=== PATIENT | male | born 1950 | race Caucasian/White ===

== ENCOUNTER 2022-01-12 08:51 | Inpatient (IN) | payer MEDICARE, OTHER ==
[~2022-01-12] VITALS: Ht 195.6 cm; Wt 115.3 kg
[2022-01-12] MEDS ORDERED: MAGNESIUM SULFATE IN WATER 2 GM in IV 1 EA IV STA ×2 (09:26)
[2022-01-12 09:59] LABS: VENOUS BASE EXCESS 2.4 (-2.0-2.0); VENOUS HCO3 28.3 MEQ/L (23.0-27.0); VENOUS O2 SATURATION 85.3 % (60.0-80.0); VENOUS PARTIAL PRESSURE CO2 49.1 mmHg (38.0-50.0); VENOUS PARTIAL PRESSURE O2 51.5 mmHg (30.0-50.0); VENOUS PH 7.379 UNITS (7.330-7.430); VENOUS STANDARD HCO3 26.4 MEQ/L; VENOUS TOTAL CO2 29.8 MEQ/L (24.0-28.0)
[2022-01-12 10:07] LABS: BASO % 0.2 % (0.0-1.0); EOS # 0.1 10^3/uL (0.0-0.5); EOS % 1.2 % (0.0-3.0); HEMATOCRIT 36.1 % (42.0-52.0); HEMOGLOBIN 11.7 g/dl (13.5-17.5); LYMPH # 0.6 10^3/uL (1.5-5.0); LYMPH % 13.5 % (24.0-44.0); MEAN CORPUSCULAR HEMOGLOBIN 29.8 pg (27.0-33.0); MEAN CORPUSCULAR HGB CONC 32.4 g/dl (32.0-36.5); MEAN CORPUSCULAR VOLUME 92.1 fl (80.0-96.0); MONO # 0.5 10^3/uL (0.0-0.8); MONO % 10.8 % (2.0-8.0); NEUTROPHILS # 3.1 10^3/uL (1.5-8.5); NEUTROPHILS % 74.1 % (36.0-66.0); PLATELET COUNT, AUTOMATED 163 10^3/uL (150-450); RED BLOOD COUNT 3.92 10^6/uL (4.30-6.10); WHITE BLOOD COUNT 4.2 10^3/uL (4.0-10.0)
[2022-01-12 10:48] LABS: BLOOD UREA NITROGEN 23 MG/DL (7-18); CALCIUM LEVEL 8.5 MG/DL (8.8-10.2); CARBON DIOXIDE LEVEL 28 MEQ/L (21-32); CHLORIDE LEVEL 104 MEQ/L (98-107); CREATININE FOR GFR 1.15 MG/DL (0.70-1.30); GLOMERULAR FILTRATION RATE > 60.0 (>42); GLUCOSE, FASTING 249 MG/DL (70-100); MAGNESIUM LEVEL 2.2 MG/DL (1.8-2.4); NT-PRO BNP 2191 PG/ML (<125); SODIUM LEVEL 139 MEQ/L (136-145)
[2022-01-12] MEDS ORDERED: VITA500T15 PO (10:48)
[2022-01-12] MEDS ORDERED: GLIP10TA6 PO (10:48)
[2022-01-12] MEDS ORDERED: ATOR1TAB21 PO (10:48)
[2022-01-12] MEDS ORDERED: VITA100093 PO (10:48)
[2022-01-12] MEDS ORDERED: TAMS1CAP17 PO (10:48)
[2022-01-12] MEDS ORDERED: PIOG1TAB37 PO (10:48)
[2022-01-12] MEDS ORDERED: FERR325T3 PO (10:48)
[2022-01-12 10:49] LABS: CPK CREATINE PHOSPHOKINASE 73 U/L (39-308)
[2022-01-12] MEDS ORDERED: HOME MED LIST COMPLETE! XX SCH (10:50)
[2022-01-12 10:52] LABS: RSV AMPLIFICATION NEGATIVE (NEGATIVE)
[2022-01-12] MEDS ORDERED: ISOVUE-370 76% 100ML VIAL As Ordered ONE (11:21)
[2022-01-12] MEDS ORDERED: ASPIRIN 81 MG CHEW TABLET PO ONE (11:25)
[2022-01-12] MEDS ORDERED: diltiaZEM 125 MG in NS 100 ML IV SCH ×2 (11:25→17:30)
[2022-01-12] MEDS ORDERED: HEPARIN SOD (PORCINE) 5000UNITS/ML 1ML VIAL/SYRINGE IV PRN (13:35)
[2022-01-12] MEDS: METOPROLOL TART 25 MG TABLET PO PRN (13:37)
[2022-01-12] MEDS ORDERED: DEXTROSE 50% 50 ML SYRINGE IV PRN (13:55)
[2022-01-12] MEDS ORDERED: GLUCAGON INJ 1MG VIAL SC PRN (13:55)
[2022-01-12] MEDS ORDERED: GLUCOSE 4GM CHEW TABLET PO PRN (13:55)
[2022-01-12] MEDS ORDERED: METOPROLOL TART 25 MG TABLET PO ONE (14:15)
[2022-01-12 14:18] LABS: HEMOGLOBIN 11.8 g/dl (13.5-17.5); MEAN CORPUSCULAR HEMOGLOBIN 29.6 pg (27.0-33.0); MEAN CORPUSCULAR HGB CONC 31.9 g/dl (32.0-36.5); MEAN CORPUSCULAR VOLUME 92.7 fl (80.0-96.0); PLATELET COUNT, AUTOMATED 160 10^3/uL (150-450); RED BLOOD COUNT 3.99 10^6/uL (4.30-6.10); WHITE BLOOD COUNT 4.3 10^3/uL (4.0-10.0)
[2022-01-12] MEDS ORDERED: METOPROLOL 5 MG/5 ML VIAL IV STA (14:19)
[2022-01-12] MEDS: HEPARIN DRIP 25,000 UNITS in IV 1 EA IV SCH (14:40)
[2022-01-12 15:21] VITALS: BP 132/91
[2022-01-12 16:00] VITALS: BP 122/82
[2022-01-12 17:00] VITALS: BP 122/66
[2022-01-12] MEDS: INSULIN LISPRO (NovoLOG) PER UNIT SC SCH (18:27)
[2022-01-12 18:32] VITALS: BP 124/68
[2022-01-12 20:00] VITALS: BP 123/67
[2022-01-12] MEDS: LEVEMIR (INSULIN DETEMIR) 1 UNITS/0.01ML SC SCH (21:00)
[2022-01-12] MEDS: ATORVASTATIN 20 MG TAB PO SCH (22:24)
[2022-01-12] MEDS: TAMSULOSIN 0.4 MG CAP PO SCH (22:24)
[2022-01-12] MEDS: VITAMIN D 1,000 INTERNATIONAL UNITS TABLET PO SCH (22:24)
[2022-01-13] VITALS: BP 129/67
[2022-01-13] MEDS ORDERED: diltiaZEM 125 MG in NS 100 ML IV SCH (01:50)
[2022-01-13 02:36] LABS: HEMOGLOBIN 11.3 g/dl (13.5-17.5); MEAN CORPUSCULAR HEMOGLOBIN 29.4 pg (27.0-33.0); MEAN CORPUSCULAR HGB CONC 32.3 g/dl (32.0-36.5); MEAN CORPUSCULAR VOLUME 91.1 fl (80.0-96.0); PLATELET COUNT, AUTOMATED 148 10^3/uL (150-450); RED BLOOD COUNT 3.84 10^6/uL (4.30-6.10); WHITE BLOOD COUNT 4.5 10^3/uL (4.0-10.0)
[2022-01-13 03:32] LABS: BLOOD UREA NITROGEN 29 MG/DL (7-18); CALCIUM LEVEL 8.2 MG/DL (8.8-10.2); CARBON DIOXIDE LEVEL 26 MEQ/L (21-32); CHLORIDE LEVEL 107 MEQ/L (98-107); CREATININE FOR GFR 1.05 MG/DL (0.70-1.30); GLOMERULAR FILTRATION RATE > 60.0 (>42); GLUCOSE, FASTING 134 MG/DL (70-100); MAGNESIUM LEVEL 2.3 MG/DL (1.8-2.4); POTASSIUM SERUM 3.7 MEQ/L (3.5-5.1); SODIUM LEVEL 139 MEQ/L (136-145)
[2022-01-13 04:00] VITALS: BP 128/82
[2022-01-13] MEDS: INSULIN LISPRO (NovoLOG) PER UNIT SC SCH ×3 (07:30→17:21)
[2022-01-13 07:58] VITALS: BP 140/82
[2022-01-13] MEDS: METOPROLOL TART 25 MG TABLET PO PRN ×2 (08:01→17:23)
[2022-01-13] MEDS: VITAMIN D 1,000 INTERNATIONAL UNITS TABLET PO SCH ×2 (08:38→22:55)
[2022-01-13] MEDS: ASCORBIC ACID 500 MG TAB PO SCH (08:39)
[2022-01-13] MEDS: HEPARIN DRIP 25,000 UNITS in IV 1 EA IV SCH (08:43)
[2022-01-13] MEDS: LEVEMIR (INSULIN DETEMIR) 1 UNITS/0.01ML SC SCH ×2 (10:18→23:17)
[2022-01-13 11:42] VITALS: BP 125/55
[2022-01-13 16:00] VITALS: BP 125/59
[2022-01-13 20:16] VITALS: BP 114/62
[2022-01-13] MEDS ORDERED: METOCLOPRAMIDE INJ 10MG/2ML VIAL (J2765 PER 1) IV ONE (22:15)
[2022-01-13] MEDS: ATORVASTATIN 20 MG TAB PO SCH (22:56)
[2022-01-13] MEDS: TAMSULOSIN 0.4 MG CAP PO SCH (22:56)
[2022-01-14] VITALS (8 sets, daily range): BP systolic 108–144; BP diastolic 60–79
[2022-01-14] MEDS: HEPARIN DRIP 25,000 UNITS in IV 1 EA IV SCH ×2 (02:44→19:19)
[2022-01-14] MEDS ORDERED: SCOPOLAMINE 1MG TRANSDERMAL PATCH TOP SCH (04:00)
[2022-01-14 08:10] LABS: HEMATOCRIT 35.5 % (42.0-52.0); HEMOGLOBIN 11.2 g/dl (13.5-17.5); MEAN CORPUSCULAR HEMOGLOBIN 29.1 pg (27.0-33.0); MEAN CORPUSCULAR HGB CONC 31.5 g/dl (32.0-36.5); MEAN CORPUSCULAR VOLUME 92.2 fl (80.0-96.0); PLATELET COUNT, AUTOMATED 173 10^3/uL (150-450); RED BLOOD COUNT 3.85 10^6/uL (4.30-6.10); WHITE BLOOD COUNT 4.2 10^3/uL (4.0-10.0)
[2022-01-14] MEDS: METOPROLOL TART 25 MG TABLET PO SCH ×2 (08:25→21:45)
[2022-01-14] MEDS: FUROSEMIDE 20 MG TAB PO SCH (08:26)
[2022-01-14] MEDS: ASCORBIC ACID 500 MG TAB PO SCH (08:26)
[2022-01-14] MEDS: VITAMIN D 1,000 INTERNATIONAL UNITS TABLET PO SCH ×2 (08:26→21:46)
[2022-01-14 08:33] LABS: BLOOD UREA NITROGEN 22 MG/DL (7-18); CALCIUM LEVEL 8.5 MG/DL (8.8-10.2); CARBON DIOXIDE LEVEL 27 MEQ/L (21-32); CHLORIDE LEVEL 106 MEQ/L (98-107); CREATININE FOR GFR 1.04 MG/DL (0.70-1.30); GLOMERULAR FILTRATION RATE > 60.0 (>42); GLUCOSE, FASTING 168 MG/DL (70-100); MAGNESIUM LEVEL 2.2 MG/DL (1.8-2.4); SODIUM LEVEL 138 MEQ/L (136-145)
[2022-01-14] MEDS: INSULIN LISPRO (NovoLOG) PER UNIT SC SCH ×3 (08:40→16:49)
[2022-01-14] MEDS: LEVEMIR (INSULIN DETEMIR) 1 UNITS/0.01ML SC SCH ×2 (08:41→21:46)
[2022-01-14] MEDS ORDERED: ELIQ5TAB PO (10:15)
[2022-01-14] MEDS ORDERED: LASI20TA3 PO (11:42)
[2022-01-14] MEDS ORDERED: METO75TA PO (11:42)
[2022-01-14] MEDS ORDERED: DILT120C89 PO (11:42)
[2022-01-14] MEDS ORDERED: LOSA25TA13 PO (11:42)
[2022-01-14] MEDS ORDERED: FARX1TAB3 PO (11:42)
[2022-01-14] MEDS ORDERED: FUROSEMIDE 20MG/2ML VIAL (J1940) IV ONE (12:00)
[2022-01-14] MEDS: LOSARTAN 25 MG TAB PO SCH (12:07)
[2022-01-14] MEDS: ATORVASTATIN 20 MG TAB PO SCH (21:45)
[2022-01-14] MEDS: TAMSULOSIN 0.4 MG CAP PO SCH (21:46)
[2022-01-15] VITALS: BP 113/67
[2022-01-15 04:00] VITALS: BP 127/69
[2022-01-15 07:41] LABS: BLOOD UREA NITROGEN 24 MG/DL (7-18); CALCIUM LEVEL 8.1 MG/DL (8.8-10.2); CARBON DIOXIDE LEVEL 27 MEQ/L (21-32); CHLORIDE LEVEL 105 MEQ/L (98-107); CREATININE FOR GFR 1.21 MG/DL (0.70-1.30); GLOMERULAR FILTRATION RATE > 60.0 (>42); GLUCOSE, FASTING 141 MG/DL (70-100); SODIUM LEVEL 137 MEQ/L (136-145)
[2022-01-15 08:00] VITALS: BP 114/68
[2022-01-15] MEDS ORDERED: METOPROLOL TART 50 MG TAB PO SCH (09:00)
[2022-01-15] MEDS: LEVEMIR (INSULIN DETEMIR) 1 UNITS/0.01ML SC SCH (09:13)
[2022-01-15] MEDS: ASCORBIC ACID 500 MG TAB PO SCH (09:14)
[2022-01-15] MEDS: INSULIN LISPRO (NovoLOG) PER UNIT SC SCH ×2 (09:14→12:06)
[2022-01-15] MEDS: VITAMIN D 1,000 INTERNATIONAL UNITS TABLET PO SCH (09:14)
[2022-01-15 09:25] VITALS: BP 149/75
[2022-01-15] MEDS: FUROSEMIDE 20 MG TAB PO SCH (09:26)
[2022-01-15 09:30] VITALS: BP 149/75
[2022-01-15] MEDS: LOSARTAN 25 MG TAB PO SCH (09:30)
[2022-01-15 12:00] VITALS: BP 102/64
[2022-01-15] MEDS ORDERED: METO50TA7 PO (12:13)
[2022-01-15] MEDS ORDERED: POTA10CA32 PO (12:17)
[2022-01-15] MEDS ORDERED: METF-838 PO (12:25)
== END 2022-01-15 16:15 | disposition home or self-care (01) | DRG 177 ==
LOC: M ED 08:51 → M ED INP 08:52 → ENRESERV 13:23 → M PCU 14:55 → OBSVTOIN 01-13 15:50
PROVIDERS: ADMIT Internal Medicine; ATTEND Internal Medicine
PROC: B246ZZZ Ultrasonography of Right and Left Heart (ICD-10-PCS; principal; 2022-01-13)
DX: U07.1 COVID-19 (principal); J12.82 Pneumonia due to coronavirus disease 2019; J44.0 Chronic obstructive pulmonary disease with (acute) lower respiratory infection; I48.92 Unspecified atrial flutter; I42.9 Cardiomyopathy, unspecified; E11.9 Type 2 diabetes mellitus without complications; E78.5 Hyperlipidemia, unspecified; E55.9 Vitamin D deficiency, unspecified; N40.0 Benign prostatic hyperplasia without lower urinary tract symptoms; M19.90 Unspecified osteoarthritis, unspecified site; Z96.653 Presence of artificial knee joint, bilateral; Z79.84 Long term (current) use of oral hypoglycemic drugs; Z79.899 Other long term (current) drug therapy; Z88.1 Allergy status to other antibiotic agents; Z88.8 Allergy status to other drugs, medicaments and biological substances; D50.9 Iron deficiency anemia, unspecified; I34.0 Nonrheumatic mitral (valve) insufficiency